=== PATIENT | male | born 1990 | race Two or more races ===

== ENCOUNTER 2022-04-04 16:18 | Emergency (ER) | payer BC ==
[~2022-04-04] VITALS: Ht 177.8 cm; Wt 86.6 kg
[2022-04-04 16:22] VITALS: BP_SYST 128
[2022-04-04] MEDS ORDERED: IBUPROFEN 800 MG TABLET PO ONE (16:45)
[2022-04-04 17:28] LABS: BASOPHILS % (AUTO) 0.4 % (0.0-2.0); EOSINOPHILS # (AUTO) 0.1 K/uL (0.0-0.4); EOSINOPHILS % (AUTO) 1.4 % (0.0-4.0); HEMATOCRIT 47.7 % (36-54); HEMOGLOBIN 16.3 g/dL (14.0-18.0); LYMPHOCYTES # (AUTO) 2.4 K/uL (1.0-5.5); LYMPHOCYTES % (AUTO) 42.4 % (20.5-51.5); MEAN CORPUSCULAR HEMOGLOBIN 31 pg (27-31); MEAN CORPUSCULAR HGB CONC 34 % (32-36); MEAN CORPUSCULAR VOLUME 90 fL (79.0-98.0); MONOCYTES # (AUTO) 0.5 K/uL (0.0-1.0); MONOCYTES % (AUTO) 8.5 % (1.7-9.3); NEUTROPHILS # (AUTO) 2.6 K/uL (1.8-7.7); NEUTROPHILS % (AUTO) 47.3 % (40.0-70.0); PLATELET COUNT (AUTO) 202 K/uL (130-430); RED CELL DISTRIBUTION WIDTH 13.1 % (9.0-15.0); WHITE BLOOD COUNT (AUTO) 5.6 K/uL (4.8-10.8)
[2022-04-04 17:45] LABS: ANION GAP 6 (5-15); CALCIUM 9.4 mg/dL (8.4-11.0); CHLORIDE 102 mmol/L (98-107); CREATININE 0.95 mg/dL (0.55-1.30); GLUCOSE 83 mg/dL (70-99); UREA NITROGEN, BLOOD 18 mg/dL (8-21)
--- NOTE | 2022-04-04 17:45 | NUR ---
MD HERNANDES IN TRIAGE FOR MSE
[2022-04-04 17:53] LABS: ALANINE AMINOTRANSFERASE 63 U/L (12-78); ASPARTATE AMINOTRANSFERASE 24 U/L (10-37); GFR AFRICAN AMERICAN 119 mL/min (>90); TOTAL BILIRUBIN 0.6 mg/dL (0.0-1.0)
[2022-04-04] MEDS ORDERED: IBUPROFEN 800 MG TABLET ONE (18:50)
[2022-04-04 19:11] VITALS: BP_SYST 131
--- NOTE | 2022-04-04 19:11 | NUR ---
Patient does not wish to proceed with medical care recommended by MD HERNANDES. Patient given information related to possible complications, up to and including , which could occur as a result of leaving hospital at this time. Patient verbalizes understanding of risks involved leaving against medical advice. Patient has signed AMA form.
== END 2022-04-04 19:11 | disposition left against medical advice (07) ==
LOC: SED 16:18
DX: R07.9 Chest pain, unspecified (principal); R51.9 Headache, unspecified; Z79.899 Other long term (current) drug therapy
CPT/HCPCS: 36415; 80053; 84484; 85025; 93005; 99284

== ENCOUNTER 2022-09-04 14:10 | Emergency (ER) | payer BC ==
[~2022-09-04] VITALS: Ht 177.8 cm; Wt 84.4 kg
[2022-09-04 14:24] VITALS: BP_SYST 125
[2022-09-04] MEDS ORDERED: KETOROLAC TROMETHAMINE 30 MG VIAL IVP ONE (14:45)
[2022-09-04 15:00] LABS: BILIRUBIN,URINE NEGATIVE (NEGATIVE); BLOOD, URINE 1+ (NEGATIVE); CLARITY/URINE CLEAR (CLEAR); COLOR,URINE YELLOW (YELLOW); GLUCOSE,URINE NEGATIVE (NEGATIVE); KETONES,URINE NEGATIVE (NEGATIVE); LEUKOCYTE ESTERASE ,URINE NEGATIVE (NEGATIVE); NITRITE, URINE NEGATIVE (NEGATIVE); PROTEIN URINE NEGATIVE (NEGATIVE); UROBILINOGEN,URINE 0.2 (0.2-1.0)
[2022-09-04] MEDS ORDERED: NACL 0.9% 1,000 ML IV ONE (15:00)
[2022-09-04] MEDS ORDERED: ONDANSETRON HCL 4 MG/2 ML VIAL IVP ONE (15:00)
[2022-09-04 15:09] LABS: BACTERIA,URINE None Seen /HPF (None Seen); RBC,URINE 0-3 /HPF (0-3); WBC,URINE NONE SEEN /HPF (0-3)
[2022-09-04 15:10] LABS: MUCUS,URINE None Seen /LPF (None Seen)
[2022-09-04 15:28] LABS: BASOPHILS % (AUTO) 0.2 % (0.0-2.0); EOSINOPHILS % (AUTO) 0.3 % (0.0-4.0); HEMATOCRIT 45.1 % (36-54); HEMOGLOBIN 15.3 g/dL (14.0-18.0); LYMPHOCYTES % (AUTO) 10.4 % (20.5-51.5); MEAN CORPUSCULAR HEMOGLOBIN 31 pg (27-31); MEAN CORPUSCULAR HGB CONC 34 % (32-36); MEAN CORPUSCULAR VOLUME 91 fL (79.0-98.0); MONOCYTES # (AUTO) 0.6 K/uL (0.0-1.0); MONOCYTES % (AUTO) 6.8 % (1.7-9.3); NEUTROPHILS # (AUTO) 7.8 K/uL (1.8-7.7); NEUTROPHILS % (AUTO) 82.3 % (40.0-70.0); PLATELET COUNT (AUTO) 167 K/uL (130-430); RED BLOOD CELL COUNT(AUTO) 4.98 MIL/uL (4.2-6.2); RED CELL DISTRIBUTION WIDTH 13.2 % (9.0-15.0); WHITE BLOOD COUNT (AUTO) 9.5 K/uL (4.8-10.8)
[2022-09-04 15:40] LABS: ANION GAP 10 (5-15); CALCIUM 8.4 mg/dL (8.4-11.0); CHLORIDE 103 mmol/L (98-107); CREATININE 0.83 mg/dL (0.55-1.30); GFR AFRICAN AMERICAN 139 mL/min (>90); GLUCOSE 89 mg/dL (70-99); UREA NITROGEN, BLOOD 14 mg/dL (8-21)
[2022-09-04 15:46] LABS: ALANINE AMINOTRANSFERASE 49 U/L (12-78); ALBUMIN 3.8 g/dL (3.4-4.8); ASPARTATE AMINOTRANSFERASE 17 U/L (10-37); TOTAL BILIRUBIN 0.6 mg/dL (0.0-1.0)
[2022-09-04] MEDS ORDERED: LIDOCAINE 2%, 20 ML MDV INJ ONE (17:15)
[2022-09-04] MEDS ORDERED: cefTRIAXone 2 GM VIAL ONE (17:15)
[2022-09-04 19:21] VITALS: BP_SYST 135
== END 2022-09-04 19:21 | disposition left against medical advice (07) ==
LOC: SED 14:10
DX: R50.9 Fever, unspecified (principal); R51.9 Headache, unspecified; M54.2 Cervicalgia; Z79.899 Other long term (current) drug therapy; Z20.822 Contact with and (suspected) exposure to COVID-19
CPT/HCPCS: 99285; 70450; 96374; 71045; 96361; 96375; 87426; 80053; 81000; 85025; 87040; 87086; 84484; 36415; 93005; 70490; 76376; 83605; 87804 ×2; J0696; J1885; J2001; J2405; J7030

== ENCOUNTER 2023-02-10 14:48 | Emergency (ER) | payer BC ==
[~2023-02-10] VITALS: Ht 177.8 cm; Wt 83.9 kg
[~2023-02-10 14:48] MED LIST: IBUP-1971 PO; TAMS-11 PO; TRAM50TA2 PO
[2023-02-10 15:19] VITALS: BP_SYST 121; PULSE 78; RESP 18; TEMP 97.4; O2SAT 97
[2023-02-10 15:58] LABS: BILIRUBIN,URINE NEGATIVE (NEGATIVE); BLOOD, URINE NEGATIVE (NEGATIVE); CLARITY/URINE CLEAR (CLEAR); COLOR,URINE YELLOW (YELLOW); GLUCOSE,URINE NEGATIVE (NEGATIVE); KETONES,URINE NEGATIVE (NEGATIVE); LEUKOCYTE ESTERASE ,URINE NEGATIVE (NEGATIVE); NITRITE, URINE NEGATIVE (NEGATIVE); PROTEIN URINE NEGATIVE (NEGATIVE); UROBILINOGEN,URINE 0.2 (0.2-1.0)
[2023-02-10 16:40] LABS: BASOPHILS % (AUTO) 0.5 % (0.0-2.0); EOSINOPHILS # (AUTO) 0.1 K/uL (0.0-0.4); EOSINOPHILS % (AUTO) 1.3 % (0.0-4.0); HEMATOCRIT 45.9 % (36-54); HEMOGLOBIN 15.5 g/dL (14.0-18.0); LYMPHOCYTES % (AUTO) 39.3 % (20.5-51.5); MEAN CORPUSCULAR HEMOGLOBIN 30 pg (27-31); MEAN CORPUSCULAR HGB CONC 34 % (32-36); MEAN CORPUSCULAR VOLUME 89 fL (79.0-98.0); MONOCYTES # (AUTO) 0.5 K/uL (0.0-1.0); MONOCYTES % (AUTO) 9.1 % (1.7-9.3); NEUTROPHILS # (AUTO) 2.6 K/uL (1.8-7.7); NEUTROPHILS % (AUTO) 49.8 % (40.0-70.0); PLATELET COUNT (AUTO) 229 K/uL (130-430); RED BLOOD CELL COUNT(AUTO) 5.14 MIL/uL (4.2-6.2); RED CELL DISTRIBUTION WIDTH 13.3 % (9.0-15.0); WHITE BLOOD COUNT (AUTO) 5.2 K/uL (4.8-10.8)
[2023-02-10 16:54] LABS: ALBUMIN 3.9 g/dL (3.4-4.8); CREATININE 1.03 mg/dL (0.55-1.30); POTASSIUM 4.1 mmol/L (3.5-5.1); TOTAL BILIRUBIN 0.4 mg/dL (0.0-1.0); TOTAL PROTEIN, SERUM 7.4 g/dL (6.4-8.3)
[2023-02-10] MEDS ORDERED: SULFAMETHOXAZOLE/TRIMETHOPR DS 1 TABLET PO ONE (17:45)
[2023-02-10] MEDS ORDERED: SULF1TAB48 PO (18:37)
[2023-02-10 18:48] VITALS: BP_SYST 136; PULSE 78; RESP 18; TEMP 98.6; O2SAT 98
== END 2023-02-10 18:48 | disposition home or self-care (01) ==
LOC: SED 14:48
DX: N12 Tubulo-interstitial nephritis, not specified as acute or chronic (principal); N50.812 Left testicular pain; Z79.899 Other long term (current) drug therapy
CPT/HCPCS: 36415; 76376; 80053; 81001; 81003; 85025; 99284